=== PATIENT | female | born 1940 | race Caucasian/White ===

== ENCOUNTER 2017-10-17 04:35 | Observation (INO) | payer MEDICARE, BC ==
[~2017-10-17] VITALS: Ht 154.9 cm; Wt 57.8 kg
[~2017-10-17 04:35] MED LIST: ALDACTONE25 MG PO; ALEVE220 M2 PO; AMITRIPTYLIN10 MG PO; AMOXICILLIN500 M2 PO; AMOXICILLIN875 MG PO; ASPIRIN EC81 MG PO; AVALIDE1 TA1 OR; CARAFATE1 GM PO; CETIRIZINE10 MG PO; CHERATUSSIN OR; CRESTOR20 MG PO; ECOTRIN325 MG OR; GABAPENTIN100 MG PO; GLIPIZIDE ER5 MG OR; GLIPIZIDE5 MG PO; HYDROCHLOROT25 MG PO; ISOSORB MONO30 MG OR; LORTAB 7.5-3251 TAB PO; LORTAB5 PO; LOSARTAN POT50 MG PO; METFORMIN500 M1 OR; METFORMIN500 MG PO; METFORMIN850 MG PO; METOPROL TAR25 MG PO; NEXIUM40 M1 PO; NITE TIME MULTI-SYM2; NITROSTAT0.4 MG SL; PRESERVISION PO; PROLIA60 MG/ML SC; SIMVASTATIN20 MG OR; TRAMADOL HCL50 MG PO; ZETIA10 MG OR; ZETIA10 MG PO; ZOLOFT50 MG PO; ZPAK OR
[2017-10-17 05:37] LABS: ALBUMIN 4.3 g/dL (3.2-5.0); ALKALINE PHOSPHATASE 56 u/l (38-126); AMYLASE 75 u/l (30-110); ANION GAP 14 (6-22 (CALC)); BILIRUBIN, TOTAL 0.7 mg/dL (0.0-1.4); BUN 16 mg/dL (8-23); BUN/CREATININE RATIO 21 (12-20 (CALC)); CARBON DIOXIDE 28 mmol/l (22-30); CHLORIDE 100 mmol/l (95-108); CREATININE 0.8 mg/dL (0.5-1.0); GFR > 60 ML/MIN (>=60 (CALC)); GFR FOR AFR.AMER. > 60 ML/MIN (>=60 (CALC)); LIPASE 92 u/l (23-300); POTASSIUM 4.3 mmol/l (3.5-5.1); SGOT/AST 27 u/l (9-36); SGPT/ALT 28 u/l (11-66); SODIUM 138 mmol/l (137-146); TOTAL PROTEIN 6.6 g/dL (6.3-8.2)
[2017-10-17 05:41] LABS: HEMATOCRIT 38.4 % (37.0-47.0); HEMOGLOBIN 12.8 g/dl (12.0-16.0); IMMATURE GRANULOCYTES 1.3 % (0.0-5.0); MEAN CORPUSCULAR HGB 30.3 pG CALC (26.0-32.0); MEAN CORPUSCULAR HGB CONC 33.3 g/L CALC (32.0-36.0); NEUT# 3.9 thou/uL (2.00-7.15); RED BLOOD COUNT 4.22 mill/uL (4.20-5.60); RED CELL DISTRI WIDTH 13.6 % (11.5-15.5)
[2017-10-17 05:49] LABS: MYOGLOBIN 54 ng/mL (0 - 62)
[2017-10-17 08:29] VITALS: BP 151/70
[2017-10-17 09:24] LABS: CHOLESTEROL HDL RATIO 2.6 (<4.4 (CALC)); MAGNESIUM 1.7 mg/dL (1.6-2.3)
[2017-10-17 12:48] VITALS: BP 143/68
[2017-10-17 15:15] VITALS: BP 163/74
[2017-10-17 19:28] VITALS: BP 132/63
[2017-10-17 23:20] VITALS: BP 159/75
[2017-10-18 04:39] VITALS: BP 125/59
[2017-10-18 09:00] VITALS: BP 124/55
[2017-10-18 11:11] VITALS: BP 128/62
[2017-10-18] MEDS ORDERED: ISOSORBIDE DINIT5 MG PO (15:01)
[2017-10-18] MEDS ORDERED: NITROGLYCER0.4 MG SL (15:02)
[2017-10-18 16:37] VITALS: BP 140/71
== END 2017-10-18 16:15 | disposition home or self-care (01) ==
LOC: ED 04:35 → ED-I 06:25 → ED 06:38 → MS2 06:39
PROVIDERS: Family Medicine; Nurse Practitioner Family; ADMIT Internal Medicine; ATTEND Internal Medicine
DX: I25.110 Atherosclerotic heart disease of native coronary artery with unstable angina pectoris (principal); I10 Essential (primary) hypertension; E11.42 Type 2 diabetes mellitus with diabetic polyneuropathy; E78.5 Hyperlipidemia, unspecified; M16.11 Unilateral primary osteoarthritis, right hip; G25.81 Restless legs syndrome; M81.0 Age-related osteoporosis without current pathological fracture; H10.13 Acute atopic conjunctivitis, bilateral; F41.9 Anxiety disorder, unspecified; F32.9 Major depressive disorder, single episode, unspecified; Z95.1 Presence of aortocoronary bypass graft; Z95.5 Presence of coronary angioplasty implant and graft; Z79.84 Long term (current) use of oral hypoglycemic drugs

== ENCOUNTER 2021-09-15 11:24 | Emergency (ER) | payer MEDICARE, BC ==
[2021-09-15] VITALS (34 sets, daily range): BP systolic 120–178; BP diastolic 50–88
[~2021-09-15] VITALS: Ht 154.9 cm; Wt 58.0 kg
[~2021-09-15 11:24] MED LIST changes: +ISOSORBIDE DINIT5 MG PO; +JANUVIA100 MG PO; +NITROGLYCER0.4 MG SL
[2021-09-15 11:54] LABS: HEMATOCRIT 36.3 % (37.0-47.0); HEMOGLOBIN 11.5 g/dl (12.0-16.0); IMMATURE GRANULOCYTES 0.4 % (0.0-5.0); MEAN CELL VOLUME 91.4 fL CALC (80.0-100.0); MEAN CORPUSCULAR HGB CONC 31.7 g/dL CAL (32.0-36.0); NEUT# 3.57 thou/uL (2.00-7.15); RED BLOOD COUNT 3.97 mill/uL (4.20-5.60); RED CELL DISTRI WIDTH 14.1 % (11.5-15.5)
[2021-09-15 12:00] LABS: GFR FOR AFR.AMER. > 60 ML/MIN (>=60 (CALC)); GFR OTHER RACES > 60 ML/MIN (>=60 (CALC))
[2021-09-15] MEDS ORDERED: GLIPIZIDE ER5 MG PO (12:05)
[2021-09-15] MEDS ORDERED: METOPROL TAR100 MG PO (12:06)
[2021-09-15] MEDS ORDERED: AMITRIPTYLINE H10 MG PO (12:07)
[2021-09-15] MEDS ORDERED: EZALLOR SPRINKL20 MG PO (12:08)
[2021-09-15] MEDS ORDERED: PRESERVISION PO (12:10)
[2021-09-15] MEDS ORDERED: ACCOLATE10 MG PO (12:10)
[2021-09-15 12:15] LABS: ALKALINE PHOSPHATASE 74 u/l (38-126); SGOT/AST 24 u/l (9-36)
[2021-09-15 12:28] LABS: ALBUMIN 4.1 g/dL (3.2-5.0); ANION GAP 13 (6-22 (CALC)); BILIRUBIN, TOTAL 0.6 mg/dL (0.0-1.4); BUN 12 mg/dL (8-23); BUN/CREATININE RATIO 21 (12-20 (CALC)); CARBON DIOXIDE 22 mmol/l (22-30); CHLORIDE 104 mmol/l (95-108); CREATININE 0.6 mg/dL (0.5-1.0); GFR FOR AFR.AMER. > 60 ML/MIN (>=60 (CALC)); GFR OTHER RACES > 60 ML/MIN (>=60 (CALC)); POTASSIUM 4.3 mmol/l (3.5-5.1); SODIUM 135 mmol/l (137-146); TOTAL PROTEIN 6.6 g/dL (6.3-8.2)
== END 2021-09-15 21:16 | disposition short-term general hospital (02) ==
LOC: ED 11:24
PROVIDERS: Family Medicine
DX: I21.4 Non-ST elevation (NSTEMI) myocardial infarction (principal); I25.10 Atherosclerotic heart disease of native coronary artery without angina pectoris; E11.42 Type 2 diabetes mellitus with diabetic polyneuropathy; E78.5 Hyperlipidemia, unspecified; K21.9 Gastro-esophageal reflux disease without esophagitis; Z95.5 Presence of coronary angioplasty implant and graft; Z79.84 Long term (current) use of oral hypoglycemic drugs; Z95.1 Presence of aortocoronary bypass graft
CPT/HCPCS: J1650; Q9967

== ENCOUNTER 2021-11-04 19:41 | Emergency (ER) | payer MEDICARE, BC ==
[~2021-11-04] VITALS: Ht 154.9 cm; Wt 54.5 kg
[~2021-11-04 19:41] MED LIST changes: +ACCOLATE10 MG PO; +AMITRIPTYLINE H10 MG PO; +EZALLOR SPRINKL20 MG PO; +GLIPIZIDE ER5 MG PO; +METOPROL TAR100 MG PO
[2021-11-04 21:27] LABS: HEMATOCRIT 32.8 % (37.0-47.0); HEMOGLOBIN 10.4 g/dl (12.0-16.0); IMMATURE GRANULOCYTES 0.3 % (0.0-5.0); MEAN CELL VOLUME 88.6 fL CALC (80.0-100.0); MEAN CORPUSCULAR HGB 28.1 pG CALC (26.0-32.0); MEAN CORPUSCULAR HGB CONC 31.7 g/dL CAL (32.0-36.0); NEUT# 1.66 thou/uL (2.00-7.15); RED BLOOD COUNT 3.7 mill/uL (4.20-5.60); RED CELL DISTRI WIDTH 14.4 % (11.5-15.5)
[2021-11-04 21:37] LABS: ALBUMIN 3.6 g/dL (3.2-5.0); ALKALINE PHOSPHATASE 66 u/l (38-126); BILIRUBIN, TOTAL 0.3 mg/dL (0.0-1.4); BUN 11 mg/dL (8-23); BUN/CREATININE RATIO 15 (12-20 (CALC)); CARBON DIOXIDE 26 mmol/l (22-30); CHLORIDE 104 mmol/l (95-108); CREATININE 0.7 mg/dL (0.5-1.0); GFR FOR AFR.AMER. > 60 ML/MIN (>=60 (CALC)); GFR OTHER RACES > 60 ML/MIN (>=60 (CALC)); POTASSIUM 3.9 mmol/l (3.5-5.1); SGOT/AST 31 u/l (9-36); TOTAL PROTEIN 5.7 g/dL (6.3-8.2)
[2021-11-04 21:50] LABS: URINE BILIRUBIN - DIPSTICK NEGATIVE (NEGATIVE); URINE BLOOD DIPSTICK NEGATIVE (NEGATIVE); URINE COLOR YELLOW; URINE GLUCOSE - DIPSTICK NEGATIVE (NEGATIVE); URINE KETONE NEGATIVE (NEGATIVE); URINE LEUK ESTERASE NEGATIVE (NEGATIVE); URINE PH 5.5 (4.5-8.0); URINE PROTEIN - DIPSTICK TRACE mg/dL (NEG-TRACE); URINE SPECIFIC GRAVITY 1.025; URINE UROBILINOGEN - DIPSTICK 0.2 E.U./dL (0.2)
[2021-11-04 21:52] LABS: URINE NITRITE - DIPSTICK NEGATIVE (Negative)
[2021-11-04 22:15] LABS: ANION GAP 15 (6-22 (CALC)); SODIUM 141 mmol/l (137-146)
[2021-11-04] MEDS ORDERED: PAXLOVID PO (22:21)
[2021-11-04 23:02] VITALS: BP 132/71
== END 2021-11-04 23:02 | disposition home or self-care (01) ==
LOC: ED 19:41
PROVIDERS: Emergency Medicine
DX: U07.1 COVID-19 (principal); R50.9 Fever, unspecified; R05.9 Cough, unspecified; M79.10 Myalgia, unspecified site; J02.9 Acute pharyngitis, unspecified; I10 Essential (primary) hypertension; E11.42 Type 2 diabetes mellitus with diabetic polyneuropathy; I25.10 Atherosclerotic heart disease of native coronary artery without angina pectoris; E78.5 Hyperlipidemia, unspecified; F32.A Depression, unspecified; K21.9 Gastro-esophageal reflux disease without esophagitis; Z95.1 Presence of aortocoronary bypass graft; Z95.5 Presence of coronary angioplasty implant and graft; Z79.84 Long term (current) use of oral hypoglycemic drugs

== ENCOUNTER 2022-11-13 15:55 | Emergency (ER) | payer MEDICARE, BC ==
[2022-11-13] VITALS (9 sets, daily range): BP systolic 167–186; BP diastolic 81–94
[~2022-11-13] VITALS: Ht 154.9 cm; Wt 54.0 kg
[~2022-11-13 15:55] MED LIST changes: +PAXLOVID PO
[2022-11-13 17:06] LABS: BASO% 0.5 % (0-3); EOS% 1.8 % (0-8); HEMATOCRIT 36.3 % (37.0-47.0); HEMOGLOBIN 11.6 g/dl (12.0-16.0); IMMATURE GRANULOCYTES 0.2 % (0.0-5.0); LYMPH% 35.1 % (15-41); MEAN CELL VOLUME 85.8 fL CALC (80.0-100.0); MEAN CORPUSCULAR HGB 27.4 pG CALC (26.0-32.0); MONO% 6.7 % (2-13); NEUT# 3.39 thou/uL (2.00-7.15); NEUT% 55.7 % (42-76); RED BLOOD COUNT 4.23 mill/uL (4.20-5.60); RED CELL DISTRI WIDTH 14.8 % (11.5-15.5)
[2022-11-13 17:28] LABS: ALBUMIN 4.1 g/dL (3.2-5.0); ALKALINE PHOSPHATASE 61 u/l (38-126); ANION GAP 15 (6-22 (CALC)); BILIRUBIN, TOTAL 0.8 mg/dL (0.02-1.3); BUN 12 mg/dL (8-23); BUN/CREATININE RATIO 19 (12-20 (CALC)); CARBON DIOXIDE 25 mmol/l (22-30); CHLORIDE 103 mmol/l (95-108); CREATININE 0.6 mg/dL (0.5-1.0); GFR FOR AFR.AMER. > 60 ML/MIN (>=60 (CALC)); GFR OTHER RACES > 60 ML/MIN (>=60 (CALC)); POTASSIUM 3.9 mmol/l (3.5-5.1); SGOT/AST 33 u/l (9-36); SODIUM 139 mmol/l (137-146); TOTAL PROTEIN 6.5 g/dL (6.3-8.2)
[2022-11-13 18:25] LABS: URINE BILIRUBIN - DIPSTICK Negative (NEGATIVE); URINE BLOOD DIPSTICK Negative (NEGATIVE); URINE GLUCOSE - DIPSTICK Negative (NEGATIVE); URINE KETONE Negative (NEGATIVE); URINE LEUK ESTERASE Negative (NEGATIVE); URINE NITRITE - DIPSTICK Negative (Negative); URINE PH 5.5 (4.5-8.0); URINE PROTEIN - DIPSTICK 30 mg/dL (NEG-TRACE); URINE UROBILINOGEN - DIPSTICK 0.2 E.U./dL (0.2)
[2022-11-13 18:45] LABS: URINE COLOR Yellow
[2022-11-13 18:46] LABS: URINE RBC 0-2 RBC/hpf (0-5); URINE SQUAMOUS EPITHELIAL CELL FEW EPI/hpf (0-FEW); URINE WBC 0-2 WBC/hpf (0-5)
== END 2022-11-13 18:34 | disposition home or self-care (01) ==
LOC: ED 15:55
PROVIDERS: Family Medicine
DX: R42 Dizziness and giddiness (principal); E11.42 Type 2 diabetes mellitus with diabetic polyneuropathy; I10 Essential (primary) hypertension; E78.5 Hyperlipidemia, unspecified; I25.10 Atherosclerotic heart disease of native coronary artery without angina pectoris; K21.9 Gastro-esophageal reflux disease without esophagitis; F32.A Depression, unspecified; Z79.84 Long term (current) use of oral hypoglycemic drugs; Z79.85 Long-term (current) use of injectable non-insulin antidiabetic drugs; Z95.5 Presence of coronary angioplasty implant and graft; Z20.822 Contact with and (suspected) exposure to COVID-19; Z95.1 Presence of aortocoronary bypass graft

== ENCOUNTER 2023-04-18 14:07 | Emergency (ER) | payer MEDICARE, BC ==
[~2023-04-18] VITALS: Ht 154.9 cm; Wt 49.9 kg
[2023-04-18] VITALS (7 sets, daily range): BP systolic 162–196; BP diastolic 76–94
[2023-04-18 15:35] LABS: BASO% 0.3 % (0-3); EOS% 1.4 % (0-8); HEMATOCRIT 37.2 % (37.0-47.0); HEMOGLOBIN 12.5 g/dl (12.0-16.0); IMMATURE GRANULOCYTES 0.2 % (0.0-5.0); MEAN CELL VOLUME 89.6 fL CALC (80.0-100.0); MEAN CORPUSCULAR HGB 30.1 pG CALC (26.0-32.0); MEAN CORPUSCULAR HGB CONC 33.6 g/dL CAL (32.0-36.0); MONO% 5.7 % (2-13); NEUT# 3.16 thou/uL (2.00-7.15); NEUT% 54.4 % (42-76); RED BLOOD COUNT 4.15 mill/uL (4.20-5.60); RED CELL DISTRI WIDTH 14.1 % (11.5-15.5)
[2023-04-18 15:54] LABS: ALBUMIN 4.2 g/dL (3.2-5.0); ALKALINE PHOSPHATASE 52 u/l (38-126); ANION GAP 8 (6-22 (CALC)); BILIRUBIN, TOTAL 0.8 mg/dL (0.02-1.3); BUN 6 mg/dL (8-23); BUN/CREATININE RATIO 12 (12-20 (CALC)); CARBON DIOXIDE 31 mmol/l (22-30); CHLORIDE 104 mmol/l (95-108); CREATININE 0.5 mg/dL (0.5-1.0); GFR FOR AFR.AMER. > 60 ML/MIN (>=60 (CALC)); GFR OTHER RACES > 60 ML/MIN (>=60 (CALC)); LIPASE 112 u/l (23-300); POTASSIUM 3.5 mmol/l (3.5-5.1); SGOT/AST 36 u/l (9-36); SODIUM 140 mmol/l (137-146); TOTAL PROTEIN 6.3 g/dL (6.3-8.2)
[2023-04-18 16:03] LABS: URINE BILIRUBIN - DIPSTICK Negative (NEGATIVE); URINE BLOOD DIPSTICK Moderate (NEGATIVE); URINE GLUCOSE - DIPSTICK Negative (NEGATIVE); URINE KETONE Negative (NEGATIVE); URINE LEUK ESTERASE Trace (NEGATIVE); URINE NITRITE - DIPSTICK Negative (Negative); URINE PROTEIN - DIPSTICK 30 mg/dL (NEG-TRACE); URINE SPECIFIC GRAVITY 1.025; URINE UROBILINOGEN - DIPSTICK 0.2 E.U./dL (0.2)
[2023-04-18 16:05] LABS: URINE COLOR Yellow
[2023-04-18 16:13] LABS: URINE SQUAMOUS EPITHELIAL CELL FEW EPI/hpf (0-FEW)
[2023-04-18] MEDS ORDERED: NAPROXEN500 MG PO (18:03)
== END 2023-04-18 18:15 | disposition home or self-care (01) ==
LOC: ED 14:07
PROVIDERS: Family Medicine
DX: R10.32 Left lower quadrant pain (principal); I10 Essential (primary) hypertension; E11.42 Type 2 diabetes mellitus with diabetic polyneuropathy; F32.A Depression, unspecified; E78.5 Hyperlipidemia, unspecified; I25.10 Atherosclerotic heart disease of native coronary artery without angina pectoris; Z95.1 Presence of aortocoronary bypass graft; Z95.5 Presence of coronary angioplasty implant and graft; Z79.84 Long term (current) use of oral hypoglycemic drugs
CPT/HCPCS: Q9967

== ENCOUNTER 2024-05-30 17:37 | Emergency (ER) | payer MEDICARE, BC ==
[2024-05-30] VITALS (37 sets, daily range): BP systolic 143–230; BP diastolic 53–101
[~2024-05-30] VITALS: Ht 154.9 cm; Wt 58.0 kg
[~2024-05-30 17:37] MED LIST changes: +NAPROXEN500 MG PO
[2024-05-30] MEDS ORDERED: METOCLOPRAMIDE HCL 10 MG/2 ML SDV IV ONE (17:45)
[2024-05-30 18:00] LABS: BASO% 0.3 % (0-3); EOS% 5.1 % (0-8); HEMOGLOBIN 12.3 g/dl (12.0-16.0); IMMATURE GRANULOCYTES 0.1 % (0.0-5.0); LYMPH% 26.4 % (15-41); MEAN CELL VOLUME 91.3 fL CALC (80.0-100.0); MEAN CORPUSCULAR HGB 29.6 pG CALC (26.0-32.0); MEAN CORPUSCULAR HGB CONC 32.4 g/dL CAL (32.0-36.0); MONO% 4.4 % (2-13); NEUT# 6.06 thou/uL (2.00-7.15); NEUT% 63.7 % (42-76); RED BLOOD COUNT 4.16 mill/uL (4.20-5.60); RED CELL DISTRI WIDTH 13.9 % (11.5-15.5)
[2024-05-30] MEDS ORDERED: LABETALOL HCL 20 MG/ 4 ML CARTRG IV ONE (18:00)
[2024-05-30 18:11] LABS: ALBUMIN 4.3 g/dL (3.2-5.0); BILIRUBIN, TOTAL 0.6 mg/dL (0.02-1.3); CREATININE 0.5 mg/dL (0.5-1.0); MAGNESIUM 1.6 mg/dL (1.6-2.3); POTASSIUM 3.4 mmol/l (3.5-5.1); TOTAL PROTEIN 6.6 g/dL (6.3-8.2)
[2024-05-30] MEDS ORDERED: DIATRIZOATE MEGLUMINE & SODIUM 30 ML/BTL PO ONE (18:55)
[2024-05-30] MEDS ORDERED: SODIUM CHLORIDE 0.9% 1,000 ML IV ONE ×2 (19:10→20:45)
[2024-05-30] MEDS ORDERED: ONDANSETRON4 MG PO (22:25)
[2024-05-30 23:02] LABS: URINE BILIRUBIN - DIPSTICK Negative (NEGATIVE); URINE BLOOD DIPSTICK Negative (NEGATIVE); URINE GLUCOSE - DIPSTICK 500 mg/dL (NEGATIVE); URINE KETONE Negative (NEGATIVE); URINE LEUK ESTERASE Negative (NEGATIVE); URINE NITRITE - DIPSTICK Negative (Negative); URINE PROTEIN - DIPSTICK 100 mg/dL (NEG-TRACE); URINE UROBILINOGEN - DIPSTICK 0.2 E.U./dL (0.2)
[2024-05-30 23:03] LABS: URINE COLOR Yellow
[2024-05-30 23:11] LABS: URINE SQUAMOUS EPITHELIAL CELL RARE EPI/hpf (0-FEW); URINE WBC 0-2 WBC/hpf (0-5)
== END 2024-05-30 23:00 | disposition home or self-care (01) ==
LOC: ED 17:37
PROVIDERS: Family Medicine
DX: A08.4 Viral intestinal infection, unspecified (principal); I10 Essential (primary) hypertension; H35.30 Unspecified macular degeneration; E11.42 Type 2 diabetes mellitus with diabetic polyneuropathy; I25.10 Atherosclerotic heart disease of native coronary artery without angina pectoris; E78.5 Hyperlipidemia, unspecified; K21.9 Gastro-esophageal reflux disease without esophagitis; Z95.1 Presence of aortocoronary bypass graft; Z95.5 Presence of coronary angioplasty implant and graft; Z79.84 Long term (current) use of oral hypoglycemic drugs
CPT/HCPCS: J2765; Q9967